=== PATIENT | male | born 1995 | race Caucasian/White ===

== ENCOUNTER 2017-01-07 07:21 | Emergency (ER) | payer BC ==
--- NOTE | 2017-01-07 07:54 | EDPHY ---
H & P Stated Complaint: N/V/D x 2 days Time Seen by Provider: 01/07/17 07:32 HPI/ROS: CHIEF COMPLAINT: Fever, vomiting, diarrhea HISTORY OF PRESENT ILLNESS: The patient is a 21 year old male, presenting with fever, vomiting, and diarrhea. The patient was seen at [facility] with fever of 103 and vomiting 2 days ago. He was negative for flu. He received Zofran. Over the past 24 hours his symptoms have worsened. He developed diarrhea and continues to feel febrile. Diarrhea is non-bloody. He lost his voice yesterday, but denies sore throat or cough. The patient was unable to sleep due to symptoms last night. He states he felt lightheaded, but did not faint. He denies chest pain, shortness of breath, palpitations, urinary complaints, or headache. REVIEW OF SYSTEMS: Aside from elements discussed in the HPI, a comprehensive 10-point review of systems was reviewed and is negative. PAST MEDICAL HISTORY: Asthma SOCIAL HISTORY: Non smoker, No alcohol, No drug use. 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 VITAL SIGNS: Reviewed by me GENERAL: Well-developed, well-nourished male, horse voice. HEENT: Atraumatic. Eyes: No icterus, no injection. Mouth: dry mucous membranes. No erythema or lesions. Neck: supple with no adenopathy. LUNGS: Clear to auscultation bilaterally, no wheezes, rhonchi or rales. CARDIAC: Regular rate and rhythm, no rubs, murmurs or gallops. ABDOMEN: Soft, nontender, nondistended, bowel sounds normal. BACK: No CVA tenderness. EXTREMITIES: No trauma. No edema. Range of motion is normal throughout. NEURO: Alert and oriented, grossly nonfocal. SKIN: Warm and dry, no rash. PSYCHIATRIC: Normal mentation, no agitation. Portions of this note were transcribed by a medical legal investigator. I personally performed a history, physical exam, medical decision making, and confirmed accuracy of information the transcribed note. - Personal History Current Tetanus/Diphtheria Vaccine: Yes Current Tetanus Diphtheria and Acellular Pertussis (TDAP): Yes - Medical/Surgical History Hx Asthma: Yes Hx Chronic Respiratory Disease: No Hx Diabetes: No Hx Cardiac Disease: No Hx Renal Disease: No Hx Cirrhosis: No Hx Alcoholism: No Hx HIV/AIDS: No Hx Splenectomy or Spleen Trauma: No Other PMH: Asthma - Social History Smoking Status: Never smoked Constitutional: Initial Vital Signs Temperature (C) 37.1 C 01/07/17 07:23 Heart Rate 126 H 01/07/17 07:23 Respiratory Rate 16 01/07/17 07:23 Blood Pressure 120/82 H 01/07/17 07:23 O2 Sat (%) 94 01/07/17 07:23 O2 Delivery Mode Room Air Allergies/Adverse Reactions: Penicillins Allergy (Intermediate, Verified 01/07/17 07:28) Hives Home Medications: Medication Instructions Recorded Cefdinir [Omnicef (*)] 300 mg PO 01/07/17 Montelukast Sodium [Singulair] 10 mg PO 01/07/17 Ondansetron Odt [Zofran Odt 4 mg 4 mg PO Q6 PRN #8 tab 01/07/17 (RX)] Ondansetron [Ondansetron Odt] 4 mg PO ONCE 01/07/17 Medical Decision Making ED Course/Re-evaluation: IV was established, the patient received IV fluids and 4mg Zofran IV. GI pathogen panel and clostridium difficile are ordered. I will check liver enzymes, lipase, and BMP. Patient has bicarb of 19, consistent with dehydration. He also has a markedly elevated hemoglobin and hematocrit. I ordered an additional liter of IV fluids. 9:45 a.m.: I reevaluated the patient. On re-examination, the patient reports feeling much improved. He is tolerating p.o. fluids without difficulty. He has had no further vomiting. He has had no diarrhea while here. He has middle abdominal pain. On examination he has a soft abdomen with no tenderness to palpation. He is feeling better. Plan to discharge after patient finishes second liter of fluids. Differential Diagnosis: Differential diagnosis for the patient's diarrhea was considered including but not limited to gastroenteritis, colitis, diverticulitis, bacterial dysentery, viral diarrhea, medication effect, and malabsorption syndrome. - Data Points Laboratory Results: Laboratory Results 01/07/17 07:55 01/07/17 07:55 01/07/17 01/07/17 07:55 07:55 WBC 6.00 10^3/uL 10^3/uL (3.80-9.50) RBC 6.29 10^6/uL 10^6/uL (4.40-6.38) Hgb 19.2 g/dL H g/dL (13.7-17.5) Hct 54.3 % H % (40.0-51.0) MCV 86.3 fL fL (81.5-99.8) MCH 30.5 pg pg (27.9-34.1) MCHC 35.4 g/dL g/dL (32.4-36.7) RDW 12.0 % % (11.5-15.2) Plt Count 175 10^3/uL 10^3/uL (150-400) MPV 9.5 fL fL (8.7-11.7) Neut % (Auto) 72.0 % % (39.3-74.2) Lymph % (Auto) 14.2 % L % (15.0-45.0) [place] % (Auto) 12.5 % % (4.5-13.0) Eos % (Auto) 0.7 % % (0.6-7.6) Baso % (Auto) 0.3 % % (0.3-1.7) Nucleat RBC Rel Count 0.0 % % (0.0-0.2) Absolute Neuts (auto) 4.32 10^3/uL 10^3/uL (1.70-6.50) Absolute Lymphs (auto) 0.85 10^3/uL L 10^3/uL (1.00-3.00) Absolute Monos (auto) 0.75 10^3/uL 10^3/uL (0.30-0.80) Absolute Eos (auto) 0.04 10^3/uL 10^3/uL (0.03-0.40) Absolute Basos (auto) 0.02 10^3/uL 10^3/uL (0.02-0.10) Absolute Nucleated RBC 0.00 10^3/uL 10^3/uL (0-0.01) Immature Gran % 0.3 % % (0.0-1.1) Immature Gran # 0.02 10^3/uL 10^3/uL (0.00-0.10) Sodium 137 mEq/L mEq/L (134-144) Potassium 3.7 mEq/L mEq/L (3.5-5.2) Chloride 98 mEq/L mEq/L (97-110) Carbon Dioxide 20 mEq/l L mEq/l (22-31) Anion Gap 19 mEq/L H mEq/L (8-16) BUN 17 mg/dL mg/dL (7-23) Creatinine 1.1 mg/dL mg/dL (0.7-1.3) Estimated GFR > 60 Glucose 106 mg/dL H mg/dL (70-100) Calcium 10.3 mg/dL mg/dL (8.5-10.4) Total Bilirubin 1.5 mg/dL H mg/dL (0.1-1.4) Conjugated Bilirubin 0.6 mg/dL H mg/dL (0.0-0.5) Unconjugated Bilirubin 0.9 mg/dL mg/dL (0.0-1.1) AST 49 IU/L IU/L (17-59) ALT 56 IU/L IU/L (21-72) Alkaline Phosphatase 57 IU/L IU/L (38-126) Total Protein 8.2 g/dL g/dL (6.3-8.2) Albumin 4.9 g/dL g/dL (3.5-5.0) Lipase 93.0 IU/L IU/L (23-300) Medications Given: Discontinued Medications Sodium Chloride (Ns) 1,000 mls @ 0 mls/hr IV ONCE ONE PRN Reason: Wide Open Stop: 01/07/17 08:00 Last Admin: 01/07/17 08:06 Dose: 1,000 mls Sodium Chloride (Ns) 1,000 mls @ 0 mls/hr IV ONCE ONE PRN Reason: Wide Open Stop: 01/07/17 08:40 Last Admin: 01/07/17 09:40 Dose: 1,000 mls Ondansetron HCl (Zofran) 4 mg IVP EDNOW ONE Stop: 01/07/17 08:00 Last Admin: 01/07/17 08:07 Dose: 4 mg Departure - Departure Disposition: Home, Routine, Self-Care Clinical Impression: Dehydration Vomiting Qualifiers: Vomiting type: unspecified Vomiting Intractability: non-intractable Nausea presence: with nausea Qualified Code(s): R11.2 - Nausea with vomiting, unspecified Diarrhea Qualifiers: Diarrhea type: unspecified type Qualified Code(s): R19.7 - Diarrhea, unspecified Condition: Good Instructions: Dehydration (ED), Acute Nausea and Vomiting (ED), Acute Diarrhea (ED) Additional Instructions: #1. For your vomiting, I suggested you start with a bland diet and advance as tolerated. This means start with clear liquids such as water, Gatorade, juice, flat non- caffeinated soda. If you tolerate clear liquids, then you may add bland foods such as bananas, rice, or toast. If you do not have any worsening of your symptoms, you may begin to resume a regular diet. #2. Take Zofran as prescribed for nausea or vomiting. #3. Take Imodium if diarrhea returns. #4. Followup at [facility] if your symptoms continue. Referrals: [facility] [place],. [Clinic] - As per Instructions Prescriptions: Ondansetron Odt [Zofran Odt 4 mg (RX)] 4 mg PO Q6 PRN #8 tab PRN Reason: Nausea Report Scribed for: Gwen Del Valle Report Scribed by: Rebeca Saavedra Date of Report: 01/07/17 Time of Report: 07:54
[2017-01-07] MEDS ORDERED: NS 1,000 ML IV ONE ×2 (07:59→08:39)
[2017-01-07] MEDS ORDERED: ONDANSETRON 4 MG/2 ML VIAL IVP ONE (07:59)
[2017-01-07 08:10] LABS: % IMMATURE GRANULYOCYTES 0.3 % (0.0-1.1); ABSOLUTE IMMATURE GRANULOCYTES 0.02 10^3/uL (0.00-0.10); ADD DIFF? NO; ADD MORPH? NO; ADD SCAN? NO; ATYPICAL LYMPHOCYTE FLAG 0 (0-99); FRAGMENT RBC FLAG 0 (0-99); HEMATOCRIT 54.3 % (40.0-51.0); HEMOGLOBIN 19.2 g/dL (13.7-17.5); LEFT SHIFT FLG 0 (0-99); LIPEMIA HEMOLYSIS FLAG 90 (0-99); MEAN CELL HEMOGLOBIN 30.5 pg (27.9-34.1); MEAN CELL HEMOGLOBIN CONCENTR. 35.4 g/dL (32.4-36.7); MEAN CELL VOLUME 86.3 fL (81.5-99.8); MEAN PLATELET VOLUME 9.5 fL (8.7-11.7); PLATELET CLUMPS FLAG 20 (0-99); PLATELET COUNT 175 10^3/uL (150-400); RED BLOOD CELL COUNT 6.29 10^6/uL (4.40-6.38)
[2017-01-07 08:32] LABS: ALANINE AMINOTRANSFERASE 56 IU/L (21-72); ALBUMIN 4.9 g/dL (3.5-5.0); ALKALINE PHOSPHATASE 57 IU/L (38-126); ANION GAP 19 mEq/L (8-16); ASPARTATE AMINOTRANSFERASE 49 IU/L (17-59); BILIRUBIN,TOTAL 1.5 mg/dL (0.1-1.4); BILIRUBIN-CONJUGATED 0.6 mg/dL (0.0-0.5); BILIRUBIN-UNCONJUGATED 0.9 mg/dL (0.0-1.1); CALCIUM 10.3 mg/dL (8.5-10.4); CARBON DIOXIDE 20 mEq/l (22-31); CHLORIDE 98 mEq/L (97-110); CREATININE 1.1 mg/dL (0.7-1.3); GLOMERULAR FILTRATION RATE > 60; GLUCOSE 106 mg/dL (70-100); POTASSIUM 3.7 mEq/L (3.5-5.2); SODIUM 137 mEq/L (134-144); TOTAL PROTEIN 8.2 g/dL (6.3-8.2)
[2017-01-07 08:35] VITALS: O2SAT 99
[2017-01-07 11:01] VITALS: BP 125/67; PULSE 81; RESP 14; TEMP 97.9
== END 2017-01-07 10:59 | disposition home or self-care (01) ==
DX: E86.0 Dehydration (principal); J45.909 Unspecified asthma, uncomplicated
CPT/HCPCS: 96374; J2405